=== PATIENT | female | born 1945 | race Caucasian/White ===

== ENCOUNTER 2019-02-26 19:14 | Emergency (ER) | payer MEDICARE ==
[2019-02-26] MEDS ORDERED: TORAdol 30 mg Injection IV ONE (19:26)
[2019-02-26] MEDS ORDERED: Sodium Chloride 0.9% 1000 ML 1,000 ML IV STA ×2 (19:26→21:54)
[2019-02-26] MEDS ORDERED: Zofran 4 MG/2 ML VIAL IV ONE (19:26)
[2019-02-26] MEDS ORDERED: TYLENOL 325 MG PO ONE (19:26)
[2019-02-26 20:09] LABS: Lactic Acid 4.4 (0.4-2.0)
[2019-02-26 20:16] LABS: Absolute Neutrophil Ct (ANC) 3.08 (1.4-6.9); BASOPHIL % 0.3 % (0.0-0.4); Basophil (Absolute #) 0.01 (0-0.4); Eosinophil % 0.3 % (0.00-5.0); Eosinophil (Absolute #) 0.01 (0-0.5); Hematocrit 26.2 % (35-47); Hemoglobin 8.6 gm/dl (12.0-16.0); Lymphocyte (Absolute #) 0.22 (1.0-4.6); Lymphocytes % 6.2 % (24.0-44.0); Mean Cell Volume 117.5 fl (78-100); Mean Corpuscular Hemoglobin 38.6 pg (26-32); Mean Corpuscular Hgb Concent. 32.8 g/dl (32-36); Mean Platelet Volume 11.4 fl (7.5-11.0); Monocyte (Absolute #) 0.23 (0.0-1.3); Monocytes % 6.5 % (0.0-12.0); Neutrophil % 86.7 % (36.0-66.0); Platelet Count 82 K/mm3 (150-450); Red Blood Count 2.23 M/mm3 (4.1-5.4); Red Cell Distribution Width 16.3 % (11.5-14.0); White Blood Count 3.6 K/mm3 (4.0-10.5)
[2019-02-26 20:19] LABS: INFLUENZA A NEGATIVE (NEGATIVE); INFLUENZA B NEGATIVE (NEGATIVE); RESPIRATORY SYNCTIAL VIRUS NEGATIVE (Negative)
[2019-02-26 20:29] LABS: ALBUMIN 3.5 g/dL (3.5-5.0); ANION GAP 11.8 MEQ/L (5-15); BILIRUBIN,TOTAL 0.4 mg/dL (0.2-1.3); Calcium 9.5 mg/dL (8.4-10.2); Creatinine 1 1.29 mg/dL (0.52-1.04); Potassium 3.7 mmol/L (3.5-5.1); Total Protein 6.9 g/dL (6.3-8.2)
[2019-02-26] MEDS ORDERED: Zosyn 3.375GM/100 Ml D5W 3.375 GM/100 ML IVPB IV STA (20:32)
[2019-02-26] MEDS ORDERED: Zofran 4 MG/2 ML VIAL ONE (20:33)
[2019-02-26] MEDS ORDERED: TYLENOL 325 MG ONE (20:33)
[2019-02-26] MEDS ORDERED: Sodium Chloride 0.9% 1000 ML 1,000 ML ONE ×3 (20:33→23:54)
[2019-02-26] MEDS ORDERED: TORAdol 30 mg Injection ONE (20:33)
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
[2019-02-26] MEDS ORDERED: Zosyn 3.375GM/100 Ml D5W 3.375 GM/100 ML IVPB IV ONE (21:31)
[2019-02-26 22:00] LABS: Appearance SLIGHTLY CLOUDY (CLEAR); Bacteria RARE /HPF (NEGATIVE); Bilirubin NEGATIVE (NEGATIVE); Blood SMALL Ery/ul (0-5); Glucose 50 mg/dL (NEGATIVE); Ketones NEGATIVE (NEGATIVE); Leukocyte Esterase NEGATIVE (NEGATIVE); Mucus SLIGHT /HPF (NEGATIVE); Nitrite NEGATIVE (NEGATIVE); Protein,Urine Dip 100 (Negative); RBC 0-2 /HPF (0-2); Specific Gravity 1.017 (1.005-1.025); Urobilinogen NEGATIVE mg/dL (0-1); WBC 0-2 /HPF (0-5)
[2019-02-26] MEDS ORDERED: Vancomycin 1GM/ Ns 250ML*** 250 ML IV ONE ×2 (22:06→22:33)
[2019-02-26 22:16] VITALS: O2SAT 99
[2019-02-26] MEDS: Vancomycin 1GM/ Ns 250ML*** 1 GM/250 ML IVPB IV SCH ×2 (22:28→23:56)
[2019-02-26] MEDS ORDERED: Sodium Chloride 0.9% 1000 ML 1,000 ML IV SCH (23:45)
[2019-02-27 00:32] VITALS: BP 136/61; PULSE 62
--- NOTE | 2019-02-27 08:53 | XRAY ---
Indication: Headache and weakness 2 days. History of breast cancer. Multiple contiguous axial images obtained through the head without contrast. Comparison: None Age-appropriate global atrophy and minimal periventricular degenerative micro-ischemia bilaterally. No acute intracranial hemorrhage, abnormal extra-axial fluid collection, or mass effect. Fourth ventricle is midline without hydrocephalus. Bony calvarium intact. Visualized paranasal sinuses and mastoid air cells are clear. Impression: Nonacute senile brain. Comment: Preliminary interpretation was made by [facility]. No critical discrepancy.
--- NOTE | 2019-02-27 08:55 | XRAY ---
Indication: Weakness. Short of breath. History of breast cancer. Comparison: November 05, 2015. Portable chest demonstrates new mild right base infiltrate/atelectasis with small effusion. Remaining heart and lungs unremarkable with stable left lung calcified granulomas, right Port-A-Cath, osteopenia, bony degenerative changes, right mastectomy, and right axillary mario dissection. Comment: Preliminary interpretation was made by [facility]. No critical discrepancy.
== END 2019-02-27 00:10 | disposition short-term general hospital (02) ==
LOC: ED 19:14
DX: R55 Syncope and collapse (principal); D64.9 Anemia, unspecified; N17.9 Acute kidney failure, unspecified; R74.0 Nonspecific elevation of levels of transaminase and lactic acid dehydrogenase [LDH]; Z79.899 Other long term (current) drug therapy
CPT/HCPCS: 36415; 51702; 70450; 71046; 80053; 81001; 83605; 83690; 84484; 85025; 87040; 87086; 87631; 93005; 96360; 96361; 96365; 96367; 96374; 96375; 99285; J1885; J2405; J2543; J3370; A9270-GY